=== PATIENT | female | born 1990 | race African-American/Black ===

== ENCOUNTER → 2022-10-13 15:38 | Outpatient (CLI) | payer BC, SELFPAY ==
--- NOTE | ~2022-10-13 | US_ITS ---
EXAMINATION: US OB transvaginal DATE: 10/13/2022 16:05 INDICATION: Sharp pelvic pain and spotting during first trimester . TECHNIQUE: Real-time pelvic ultrasound utilizing transvaginal probe was performed. The interpreting r adiologist was not present for the study. COMPARISON: None. FINDINGS: The uterus measures 10.4 x 6.7 x 8.8 cm. Intrauterine gestational sac with single chorion containing what appear to be 2 separate yolk sacs and 2 separate amniotic sacs, one in the and one containing a single pole. The crown rump length measures 1.6 cm, which correlates with an estimated gestati onal age of 8 weeks and 0 days. heart motion is identified measuring 160 beats per minute (bpm) by M-mode Doppler. There are couple small hypoechoic regions of the periphery of the gestational sac consistent with sub chorionic hematomas. The larger is located on the left superior margin measuring 2.1 x 1.2 x 1.0 cm a nd the smaller measuring 1.2 x 1.0 x 0.4 cm located posterior inferiorly. 3.2 x 1.6 x 2.5 cm hypoecho ic subserosal fibroid at the posterior uterine fundus. The right ovary measures 3.8 x 3.0 x 2.7 cm. The left ovary measures 2.5 x 1.0 x 2.5 cm. There is no free fluid in the pelvis. IMPRESSION: 1. Single living fetus with heart of 160 bpm within a likely dichorionic diamniotic . No evident fetus identified within a second likely amniotic sac. 2. Gestational age by ultrasound of 8 weeks 0 day(s) +/- 5 day(s) with ultrasound estimated date of delivery (GRICELDA) of 05/25/2023. 3. There are a couple small subchorionic hematomas. Reviewed, dictated and finalized at location A. E CASE REPAIRER IMPRESSION: 1. Single living fetus with heart of 160 bpm within a likely dichorionic diamniotic . No evident fetus identified within a second likely amniot ic sac. 2. Gestational age by ultrasound of 8 weeks 0 day(s) +/- 5 day(s) with ultraso und estimated date of delivery (GRICELDA) of 05/25/2023. 3. There are a couple small subchorionic hematomas.
== END ==
PROVIDERS: PCP Advanced Practice Midwife; Visit Provider Advanced Practice Midwife
DX: O26.851 Spotting complicating pregnancy, first trimester (principal); O36.80X0 Pregnancy with inconclusive fetal viability, not applicable or unspecified; Z3A.08 8 weeks gestation of pregnancy
CPT/HCPCS: 76817

== ENCOUNTER → 2022-10-29 14:24 | Outpatient (CLI) | payer BC, SELFPAY ==
--- NOTE | ~2022-10-29 | US_ITS ---
EXAMINATION: US OB transvaginal DATE: 10/29/2022 14:54 INDICATION: Follow-up subchorionic hematoma during first trimester TECHNIQUE: Real-time pelvic transabdominal and transvaginal ultrasound was performed. COMPARISON: 10/13/2022 FINDINGS: The uterus measures 10.7 x 6.6 x 9.8 cm. The previously described subchorionic hematomas ar e not visualized. In addition only a single amnion and yolk sac are visualized on the current examina tion. There is an intrauterine gestational sac. A yolk sac is identified. heart motion is iden tified measuring 157 beats per minute (bpm) by M-mode Doppler. A 1.9 x 1.8 x 1.7 cm hypoechoic mass o f the posterior uterine body has the appearance of an intramural fibroid. The crown rump length measures 3.5 cm, which correlates with an estimated gestational age of 10 weeks and 3 day(s) (+/-) 7 day(s). The ovaries are not visualized however no adnexal abnormality is seen. There is no free fluid in the pelvis. IMPRESSION: 1. Live intrauterine with an estimated gestational age of 10 weeks and 3 day(s) (+/-) 7 day (s) and an estimated delivery date of 05/24/2023. 2. No subchorionic hematoma visualized. 3. Uterine fibroid. 4. Previously described empty second amniotic sac and yolk sac are no longer identified. Reviewed, dictated and finalized at location F. ECTIONAL COOK IMPRESSION: 1. Live intrauterine with an estimated gestational age of 10 weeks an d 3 day(s) (+/-) 7 day(s) and an estimated delivery date of 05/24/2023. 2. No subchorionic hematoma visualized. 3. Uterine fibroid. 4. Previously described empty second amniotic sac and yolk sac are no longer id entified.
== END ==
PROVIDERS: PCP Obstetrics & Gynecology Gynecology; Visit Provider Obstetrics & Gynecology Gynecology
DX: O36.8910 Maternal care for other specified fetal problems, first trimester, not applicable or unspecified (principal); Z3A.00 Weeks of gestation of pregnancy not specified; D25.9 Leiomyoma of uterus, unspecified
CPT/HCPCS: 76817

== ENCOUNTER → 2022-12-21 15:51 | Outpatient (CLI) | payer BC, SELFPAY ==
--- NOTE | ~2022-12-21 | US_ITS ---
EXAMINATION: US OB /maternal detail DATE: 12/21/2022 16:39 INDICATION: Second trimester anatomic survey TECHNIQUE: Real-time ultrasound of the pelvis was performed. COMPARISON: None. FINDINGS: There is a single living fetus in vertex presentation. The placenta is posterior and 3.2 cm from the internal cervical os. The cervical length is 2.8 cm. heart rate is 142 beats per minute (bpm). cardiac activity and movement are noted. The amniotic fluid index is subjectively normal . The following anatomy was identified as normal: 4 chamber heart 3 vessel cord cord insertion kidneys urinary bladder stomach spine diaphragm ventricles cisterna magna cerebellum The following biometric data were obtained: Biparietal diameter (BPD): 4.3 cm; head circumference (HC): 15.6 cm; abdominal circumference (AC): 12 .9 cm; femur length (FL): 2.5 cm. These measurements are concordant. Estimated weight is 225 g +/- 33 g, which correlates with the 63rd percentile when 05/25/2023 is used as estimated date of delivery. As single measurements, these parameters are each equal to the following estimated gestational ages w ith ranges of +/- 2 standard deviations: BPD: 19 weeks 1 days ( 17 weeks 3 days - 20 weeks 6 days). HC: 18 weeks 4 days ( 17 weeks 0 days - 20 weeks 0 days). AC: 18 weeks 4 days ( 16 weeks 3 days - 20 weeks 4 days). FL: 17 weeks 4 days ( 16 weeks 1 days - 19 weeks 0 days). estimated gestational age based solely on measurements from this exam is 18 weeks 3 days +/- 1 weeks 2 days. IMPRESSION: 1. Single living fetus in vertex presentation. 2. Estimated weight is 225 g +/- 33 g, which correlates with the 63rd percentile when 05/25/2023 is used as estimated date of delivery. Reviewed, dictated and finalized at location L. IMPRESSION: 1. Single living fetus in vertex presentation. 2. Estimated weight is 225 g +/- 33 g, which correlates with the 63rd per centile when 05/25/2023 is used as estimated date of delivery.
== END ==
PROVIDERS: PCP Advanced Practice Midwife; Visit Provider Advanced Practice Midwife
DX: Z36.9 Encounter for antenatal screening, unspecified (principal)
CPT/HCPCS: 76805

== ENCOUNTER → 2023-02-08 11:06 | Outpatient (CLI) | payer BC, SELFPAY ==
--- NOTE | ~2023-02-08 | US_ITS ---
EXAMINATION: US OB follow up DATE: 02/08/2023 11:33 INDICATION: Size greater than dates TECHNIQUE: Real-time ultrasound of the pelvis was performed. COMPARISON: 12/21/2022. FINDINGS: Cervical length 3.6 cm, closed. There is a single living fetus in breech presentation, longitudinal l ie. The placenta is fundal. heart rate is 129 beats per minute (bpm). cardiac activity a nd movement are noted. The amniotic fluid index is 30.6 cm (5th to 95th percentile is 9.8-21.9 cm). The following biometric data were obtained: Biparietal diameter (BPD): 6.53 cm; head circumference (HC): 24.70 cm; abdominal circumference (AC): 21.15 cm; femur length (FL): 4.77 cm. These measurements are concordant. Estimated weight is 869.64 g +/- 130.45 g, which correlates with the 85.2 percentile when 2022 is used as estimated date of delivery. As single measurements, these parameters are each equal to the following estimated gestational ages w ith ranges of +/- 2 standard deviations: BPD: 26 weeks 3 days ( 24 weeks 1 days - 28 weeks 4 days). HC: 26 weeks 6 days ( 24 weeks 5 days - 28 weeks 6 days). AC: 25 weeks 5 days ( 23 weeks 3 days - 27 weeks 6 days). FL: 26 weeks 0 days ( 23 weeks 6 days - 28 weeks 0 days). estimated gestational age based solely on measurements from this exam is 26 weeks 2 days +/- 1 weeks 6 days. IMPRESSION: 1. Single living fetus in breech presentation. 2. Polyhydramnios. 3. Estimated weight: 869.64 g +/-130.45 g, corresponding to the 85.2 percentile. 4. GRICELDA by ultrasound 05/15/2023. Reviewed, dictated and finalized at location K. IMPRESSION: 1. Single living fetus in breech presentation. 2. Polyhydramnios. 3. Estimated weight: 869.64 g +/-130.45 g, corresponding to the 85.2 perc entile. 4. GRICELDA by ultrasound 05/15/2023.
== END ==
PROVIDERS: PCP Advanced Practice Midwife; Visit Provider Advanced Practice Midwife
DX: O36.63X0 Maternal care for excessive fetal growth, third trimester, not applicable or unspecified (principal); Z3A.26 26 weeks gestation of pregnancy
CPT/HCPCS: 76816

== ENCOUNTER 2023-03-04 12:57 | Outpatient (RCR) | payer BC, SELFPAY ==
[2023-03-04] MEDS: RHO(D) IMMUNE GLOBULIN 300 MCG/2 ML SYRINGE IM (17:30)
== END 2023-06-02 23:59 | disposition home or self-care (01) ==
LOC: ANHLAB 12:57
PROVIDERS: Visit Provider Advanced Practice Midwife
DX: Z29.13 Encounter for prophylactic Rho(D) immune globulin (principal); O36.0190 Maternal care for anti-D [Rh] antibodies, unspecified trimester, not applicable or unspecified; Z3A.00 Weeks of gestation of pregnancy not specified
CPT/HCPCS: 36415; 85461; 86850; 86900; 86901; 90384; 96372; J2790

== ENCOUNTER → 2023-04-06 15:34 | Outpatient (CLI) | payer BC, SELFPAY ==
--- NOTE | ~2023-04-06 | US_ITS ---
EXAMINATION: US OB limited DATE: 04/06/2023 16:00 INDICATION: Estimated size greater than expected for estimated gestational age during third tri mester . Assess amniotic fluid index. TECHNIQUE: Real-time ultrasound of the pelvis was performed. The interpreting radiologist was not pre sent for the study. COMPARISON: None. FINDINGS: There is a single living fetus in vertex presentation. The placenta is anterior fundal and not low-l evon. Normal cervical length of 4.8 cm. heart rate is 146 beats per minute (bpm). The amniotic fluid index is 20.7 cm, which is normal. (5th%-95%: 8.3-24.5 cm at 33 weeks estimated gestational age ). IMPRESSION: 1. Single living fetus in vertex presentation with heart rate of 146 bpm. 2. Normal amniotic fluid index of 20.7 cm. Reviewed, dictated and finalized at location B. IMPRESSION: 1. Single living fetus in vertex presentation with heart rate of 146 bpm . 2. Normal amniotic fluid index of 20.7 cm.
== END ==
PROVIDERS: PCP Obstetrics & Gynecology Gynecology; Visit Provider Obstetrics & Gynecology Gynecology
DX: O36.63X0 Maternal care for excessive fetal growth, third trimester, not applicable or unspecified (principal); Z3A.00 Weeks of gestation of pregnancy not specified
CPT/HCPCS: 76815

== ENCOUNTER 2023-05-24 16:35 | Outpatient (CLI) | payer BC, SELFPAY ==
[2023-05-24] VITALS (11 sets, daily range): BP systolic 85–126; BP diastolic 65–86; PULSE 78–101
[2023-05-24 17:57] LABS: Basophils Percent Auto 0.2 % (0.2-1.2); Eosinophils Absolute Auto 0.1 K/mm3 (0-0.3); Eosinophils Percent Auto 0.8 % (0-4.4); Hematocrit 37.9 % (37.0-47.0); Immature Granulocyte Absolute 0.08 K/mm3 (0.00-0.031); Immature Granulocyte Percent A 0.8 % (0-0.5); Lymphocytes Absolute Auto 1.95 K/mm3 (0.9-3.2); Lymphocytes Percent Auto 19.7 % (18.3-44.2); Mean Corpuscular HGB Conc 31.7 g/dl (32-36); Mean Corpuscular Hemoglobin 28.7 pg (26-34); Mean Corpuscular Volume 90.7 fl (80-100); Mean Platelet Volume 10.8 fl (7.4-10.4); Monocytes Absolute Auto 0.5 K/mm3 (0.1-0.6); Monocytes Percent Auto 5.1 % (2.6-8.5); Neutrophils Absolute Auto 7.3 K/mm3 (1.3-6.7); Neutrophils Percent Auto 73.4 % (45.5-73.1); Platelet Count Result 210 k/mm3 (150-375); Red Blood Count 4.18 M/mm3 (4.2-5.4); Red Cell Distribution Width 15.5 % (11.5-14.5); White Blood Count 9.9 K/mm3 (4.5-10.0)
[2023-05-24 18:09] LABS: Alanine Aminotransferase 26 U/L (6-35); Albumin Level 3.5 g/dL (3.5-5.1); Alkaline Phosphatase 204 U/L (38-126); Anion Gap 4 mmol/L (8-16); Aspartate Amino Transferase 34 U/L (14-36); Bilirubin,Total 0.4 mg/dL (0.2-1.3); Blood Urea Nitrogen 7 mg/dL (7-17); Carbon Dioxide 22 mmol/L (22-30); Chloride 104 mmol/L (98-107); Estimated Glomerular Filt Rate > 60; Glucose 136 mg/dL (65-110); Potassium 3.8 mmol/L (3.4-5.0); Sodium 130 mmol/L (137-145); Uric Acid 5.6 mg/dL (2.5-7.5)
[2023-05-24 18:47] LABS: Appearance Urine Clear (Clear); Bacteria Urine None Seen /hpf; Bilirubin Urine Negative (Negative); Blood Urine Negative (Negative); Color Urine Yellow (Yellow); Creatinine Urine 160.9 mg/dL; Glucose Urine UA Negative (Negative); Ketones Urine 1+ mg/dL (Negative); Leukocyte Esterase Ur 2+ LEU/UL (NEGATIVE); Nitrate Urine Negative (Negative); Non Pathogenic Casts 0-2; Protein Urine Trace mg/dL (Negative); RBC Urine 0-2 /hpf (0-2); Specific Grav Ur 1.015 (1.001-1.035); Squamous Epithelial Cell Urine Occasional /hpf (Few); Total Protein Urine Random 12 mg/dL; Ur Ttl Prot Creatinine Ratio 0.07 mg/mg (0-0.20)
[2023-05-24 18:50] LABS: Add Urine Microscopic? YES
== END 2023-05-24 19:57 | disposition home or self-care (01) ==
LOC: ANHOBOP 17:27 → ANHLDR 17:28
PROVIDERS: Visit Provider Advanced Practice Midwife
DX: O13.9 Gestational [pregnancy-induced] hypertension without significant proteinuria, unspecified trimester (principal); Z3A.00 Weeks of gestation of pregnancy not specified
CPT/HCPCS: 36415; 59025; 80053; 81001; 82570; 84156; 84550; 85025; 87086; 99199

== ENCOUNTER 2023-05-29 17:26 | Inpatient (IN) | payer BC, SELFPAY ==
[2023-05-29] VITALS (14 sets, daily range): BP systolic 99–119; BP diastolic 65–79; PULSE 87–108; RESP 16–18; TEMP 36.3; O2SAT 99–100; BMI 38.8
--- NOTE | 2023-05-29 18:39 | LDADM ---
This patient, Bessie Guajardo, was admitted to Labor/Delivery/Recovery 105 on 05/29/23 at 17:26. Plans for labor, pain management and were discussed with patient. Patient/family oriented to hospital policies and general routines including ID bracelet, bed and alarms, visiting hours, pain management, procedures, bathroom and other care routines, personal items, smoking policy, room service/diet and guest tray routines, security routines, and visiting hours. Patient/Family are encouraged to report perceived risks to care and to ask questions if they do not understand what they are told or what they should do. See OBIX for further documentation.
[2023-05-29 18:56] LABS: Basophils Percent Auto 0.2 % (0.2-1.2); Eosinophils Absolute Auto 0.1 K/mm3 (0-0.3); Eosinophils Percent Auto 1.1 % (0-4.4); Hematocrit 36.7 % (37.0-47.0); Hemoglobin 11.9 g/dL (12.0-15.0); Immature Granulocyte Absolute 0.07 K/mm3 (0.00-0.031); Immature Granulocyte Percent A 0.7 % (0-0.5); Lymphocytes Absolute Auto 2.06 K/mm3 (0.9-3.2); Lymphocytes Percent Auto 21.5 % (18.3-44.2); Mean Corpuscular HGB Conc 32.4 g/dl (32-36); Mean Corpuscular Hemoglobin 29.2 pg (26-34); Mean Platelet Volume 10.7 fl (7.4-10.4); Monocytes Absolute Auto 0.9 K/mm3 (0.1-0.6); Monocytes Percent Auto 9.3 % (2.6-8.5); Neutrophils Absolute Auto 6.4 K/mm3 (1.3-6.7); Neutrophils Percent Auto 67.2 % (45.5-73.1); Platelet Count Result 187 k/mm3 (150-375); Red Blood Count 4.08 M/mm3 (4.2-5.4); Red Cell Distribution Width 15.3 % (11.5-14.5); White Blood Count 9.6 K/mm3 (4.5-10.0)
[2023-05-29] MEDS: LACTATED RINGERS 1,000 ML 125 ML IV CONT (20:12)
[2023-05-29] MEDS: AMPICILLIN 2 GM/NS 100 ML 2 GM/100 ML BAG IVPB (20:14)
[2023-05-29] MEDS: OXYTOCIN 30 UNITS/NS 500 ML 30 UNITS/500 ML BAG IV CONT (20:46)
[2023-05-30] VITALS (200 sets, daily range): BP systolic 60–131; BP diastolic 31–96; PULSE 30–238; RESP 16–20; TEMP 36.3–37.9; O2SAT 79–100
[2023-05-30] MEDS: AMPICILLIN 1 GM/NS 50 ML 1 GM/50 ML BAG IVPB ×2 (00:59→05:06)
[2023-05-30] MEDS: LACTATED RINGERS 1,000 ML 125 ML IV CONT ×2 (00:59→08:13)
--- NOTE | 2023-05-30 01:19 | WPDANESEPP ---
Anes - Eval Pre Procedure Procedure: Labor epidural Date/Time: 05/30/23 01:19 Surgeon: Herbert Preop Diagnosis: Abdominal pain with contractions Pre Op Diagnosis: spontaneous ROM Patient Data Age: 32 Gender: F Height: 1.6 m Weight: 99.5 kg Last Vital Signs Temp 97.4 F L 05/29/23 20:16 Pulse 108 H 05/29/23 22:48 Resp 16 05/29/23 20:16 BP 99/68 L 05/29/23 22:48 Pulse Ox 98 05/30/23 01:16 O2 Del Method Room Air 05/29/23 18:37 Allergies Allergy/AdvReac Type Severity Reaction Status Date / Time No Known Allergies Allergy Verified 04/25/23 13:43 Home Medications Medication Instructions Recorded Confirmed Type docusate sodium 100 mg capsule 100 mg PO DAILY 04/25/23 05/29/23 History (Colace) vits no.126-ferrous fum 1 tablet PO DAILY 04/25/23 05/29/23 History 28 mg iron-folic acid 800 mcg tablet (Classic ) Laboratory Tests 05/29/23 05/29/23 18:51 18:52 WBC 9.6 K/mm3 (4.5-10.0) RBC 4.08 L M/mm3 (4.2-5.4) Hgb 11.9 L g/dL (12.0-15.0) Hct 36.7 L % (37.0-47.0) MCV 90.0 fl (80-100) MCH 29.2 pg (26-34) MCHC 32.4 g/dl (32-36) RDW 15.3 H % (11.5-14.5) Plt Count 187 k/mm3 (150-375) MPV 10.7 H fl (7.4-10.4) Immature Gran % (Auto) 0.7 H % (0-0.5) Neut % (Auto) 67.2 % (45.5-73.1) Lymph % (Auto) 21.5 % (18.3-44.2) [place] % (Auto) 9.3 H % (2.6-8.5) Eos % (Auto) 1.1 % (0-4.4) Baso % (Auto) 0.2 % (0.2-1.2) Lymph # (Auto) 2.06 K/mm3 (0.9-3.2) [place] # (Auto) 0.9 H K/mm3 (0.1-0.6) Eos # (Auto) 0.1 K/mm3 (0-0.3) Baso # (Auto) 0.0 K/mm3 (0.0-0.1) Abs Immat Gran (auto) 0.07 H K/mm3 (0.00-0.031) Absolute Neuts (auto) 6.4 K/mm3 (1.3-6.7) Absolute Nucleated RBC 0.0 K/mm3 (0.0-0.012) Nucleated RBC % 0.0 % (0.0-0.2) RPR Pending Blood Type A Negative Antibody Screen Negative : gestational age HCG: positive Patient hx anesthesia problems: none Family hx anesthesia problems: none Results Review: All pre-operative results and documents have been reviewed as part of the pre-operative evaluation. [facility]LY [facility] Past Medical History Medical History Anemia affecting Asthma Morbid obesity and not yet delivered Family History Family History Grandparent Thyroid disorder Hypertension Father Thyroid disorder Mother Anemia Social History Social History Smoking status: Never smoker Substance use: never Lack of Transportation: No Lack of Food: Never True Current Housing: I Have Housing Concerned About Future Housing: No Difficulty Paying Gas/Electric Bills: No Difficulty Paying for Meds: No Currently Unemployed: No Education: Bachelor's Degree Difficulty w/ Childcare or Family Care: No Spiritual care concerns: No Exam Day of Procedure 05/30/23 01:19 Patient weight: morbidly obese Airway: Mallampati scale class II
[2023-05-30] MEDS: PHENYLEPHRINE 1,000 MCG/10 ML SYRINGE 100 MCG IV PUSH ×2 (02:20→05:50)
[2023-05-30] MEDS: TERBUTALINE SULFATE 1 MG/ML VIAL 0.25 MG SUB-Q (02:46)
[2023-05-30] MEDS: SODIUM CHLORIDE 0.9% IV 600 ML 999 ML I-UTERINE (03:52)
[2023-05-30] MEDS: SODIUM CHLORIDE 0.9% IV 1,000 ML 180 ML I-UTERINE ×2 (04:29→06:48)
--- NOTE | 2023-05-30 08:04 | PM.OBPNLAB ---
Pain Control Date/time seen: 05/30/23 0771 Pain control: tolerating well and epidural Comments: Pt with intermittent hypotension since epidural placement and periods of recurrent variable decelerations. Overall reassuring tracing. Amnioinfusion started overnight and variables have improved. Pelvic Exam Comments: No sve at this time Contractions Monitor mode: Internal Contraction pattern: Regular Status status: Category ll Assessment and Plan Comments: Pitocin off at this time. Discussed plan of care. Plan to restart pitocin if at least 30 minutes of cat 1 tracing is present. Pt repositioned with CNM and RN. Family present and supportive. Dr. Godinez updated.
--- NOTE | 2023-05-30 09:19 | PM.IMHP ---
H&P: HPI History of Present Illness Date/Time: 05/30/23 09:19 Chief Complaint: intolerance of labor Narrative: Patient is a 32-year-old 1 at 39 and 2 7th weeks admitted with labor and spontaneous rupture of membranes. Patient has progressed slowly to 5cm. heart tones have been on and off category 2. Patient had a prolonged bradycardic episode when Pitocin was restarted. It resolved with position change and stopping the Pitocin. Patient remains 5cm. It was recommended to the patient to proceed with primary . Patient voiced understanding and agreed to proceed. Review of Systems Review of Systems: All systems reviewed & are unremarkable except as noted in HPI and below ( Present illness) [facility] Past Medical History Medical History (Updated 05/30/23 @ 09:23 by Tamiko Godinez MD) Anemia affecting Asthma Morbid obesity Family History Family History Grandparent Thyroid disorder Hypertension Father Thyroid disorder Mother Anemia Social History Social History Smoking status: Never smoker Substance use: never Lack of Transportation: No Lack of Food: Never True Current Housing: I Have Housing Concerned About Future Housing: No Difficulty Paying Gas/Electric Bills: No Difficulty Paying for Meds: No Currently Unemployed: No Education: Bachelor's Degree Difficulty w/ Childcare or Family Care: No Spiritual care concerns: No Meds Home Medications and Allergies Home Medications Medication Instructions Recorded Confirmed Type docusate sodium 100 mg capsule 100 mg PO DAILY 04/25/23 05/29/23 History (Colace) vits no.126-ferrous fum 1 tablet PO DAILY 04/25/23 05/29/23 History 28 mg iron-folic acid 800 mcg tablet (Classic ) Allergies Allergy/AdvReac Type Severity Reaction Status Date / Time No Known Allergies Allergy Verified 04/25/23 13:43 Vital Signs Vital Signs - 24 hr 05/29/23 17:46 05/29/23 18:01 05/29/23 18:17 Temperature Pulse Rate 94 93 90 Respiratory Rate Blood Pressure 119/76 114/69 105/65 Pulse Oximetry Oxygen Delivery 05/29/23 18:30 05/29/23 20:16 05/29/23 20:52 Temperature 97.4 F L Pulse Rate 89 90 87 Respiratory Rate 16 Blood Pressure 108/79 112/79 113/71 Pulse Oximetry Oxygen Delivery 05/29/23 22:48 05/29/23 23:35 05/29/23 23:40 Temperature Pulse Rate 108 H Respiratory Rate Blood Pressure 99/68 L Pulse Oximetry 99 100 Oxygen Delivery 05/29/23 23:45 05/29/23 23:50 05/29/23 23:55 Temperature Pulse Rate Respiratory Rate Blood Pressure Pulse Oximetry 100 99 100 Oxygen Delivery 05/29/23 23:59 05/30/23 00:04 05/30/23 00:07 Temperature Pulse Rate Respiratory Rate Blood Pressure Pulse Oximetry 100 99 98 Oxygen Delivery 05/30/23 00:07 05/30/23 00:07 05/30/23 00:09 Temperature Pulse Rate Respiratory Rate Blood Pressure Pulse Oximetry 99 99 95 Oxygen Delivery 05/30/23 00:14 05/30/23 00:19 05/30/23 00:24 Temperature Pulse Rate Respiratory Rate Blood Pressure Pulse Oximetry 100 98 100 Oxygen Delivery 05/30/23 00:29 05/30/23 00:34 05/30/23 00:39 Temperature Pulse Rate Respiratory Rate Blood Pressure Pulse Oximetry 100 100 100 Oxygen Delivery 05/30/23 00:44 05/30/23 00:49 05/30/23 00:54 Temperature Pulse Rate Respiratory Rate Blood Pressure Pulse Oximetry 99 99 100 Oxygen Delivery 05/30/23 00:59 05/30/23 01:16 05/30/23 01:21 Temperature Pulse Rate Respiratory Rate Blood Pressure Pulse Oximetry 100 98 100 Oxygen Delivery 05/30/23 01:23 05/30/23 01:26 05/30/23 01:30 Temperature Pulse Rate 125 H 105 H Respiratory Rate Blood Pressure 119/93 H 121/82 Pulse O
--- NOTE | 2023-05-30 09:24 | WPDHPUPDATE1 ---
History and Physical Update Update Date/Time: 05/30/23 09:24 History and Physical has been reviewed, including an updated exam of the patient. There are NO changes in the patient's condition. Risks, benefits, and alternatives have been discussed and questions answered. Patient agrees to proceed with procedure.
--- NOTE | 2023-05-30 10:22 | P.OP_ITS ---
Procedure Note - Detailed Date of Procedure 05/30/23 Pre-op Diagnosis Intrauterine at 39 weeks intolerance of labor Post-op Diagnosis Same Procedure Performed Primary low-transverse section Surgeon Tamiko Godinez MD Anesthesia Epidural Findings Male 9lb 4oz with Apgars of 8 [id number] 9 [id number] in the occiput posterior position; normal-appearing tubes, ovaries; uterus with multiple small fibroids under 2cm Description of Procedure The patient is taken to the operating room and placed under anesthesia in the dorsal supine position with a leftward tilt. She was prepped and draped in the usual sterile fashion. Pfannenstiel skin incision was made with a scalpel and carried down to the underlying layer fascial once anesthesia was deemed adequate. The fascial incision was extended laterally using Paiz scissors. Ochsner was used to tent the fascia which was then dissected off using sharp and blunt dissection. Rectus muscles are in the midline. The peritoneum is tented and entered with Metzenbaum scissors. The incision was extended with blunt traction. The bladder blade is placed and the vesicouterine peritoneum grasped with a Peon. The bladder flap was created using Metzenbaum sound blunt dissection. The bladder blade is replaced. The lower uterine segment was incised in a transverse fashion with the scalpel and extended laterally using blunt traction. The 's head was noted to be in occiput posterior position. The infant's head was brought up into the incision and delivered while the speech pathologist assistant was applying fundal pressure. The remainder of the was delivered and the cord clamped and cut and the infant handed to the waiting nursery nurse. The placenta was removed using manual traction after cord gases and cord blood are drawn. The uterus is exteriorized and cleared of all clots and debris. The uterine incision was closed using 0 Monocryl in a running locked fashion. Same suture was used to imbricate. Good hemostasis is noted. The cul-de-sac is irrigated and the uterus returned to the abdomen the gutters are irrigated. The fascia was closed in a running fashion with 0 Vicryl. Subcutaneous tissues were irrigated made hemostatic using Bovie cautery. Skin incision was closed using 4-0 Vicryl in a subcuticular fashion. Dermaflex was placed over the incision. Sponge, needle, and instrument counts are correct per the OR staff. Patient received Ancef and Zithromax. Estimated Blood Loss 300 Drains Yes (Parkinson catheter) Packing No Pathology Yes (Placenta) Complications No immediate complications Condition Stable Disposition Floor
--- NOTE | 2023-05-30 10:43 | P.DS_ITS ---
DS: Admitting Diagnosis Discharge Date 06/02/23 Admitting Diagnosis intrauterine at 39 weeks with spontaneous rupture membranes in labor DS: Discharge Diagnosis Discharge Diagnosis (1) bradycardia affecting management of mother, delivered: Code(s): O76 - Abnormality in heart rate and rhythm complicating labor and delivery Status: Acute (2) 39 weeks gestation of : Code(s): Z3A.39 - 39 weeks gestation of Status: Acute (3) Delivery by section using transverse incision of lower segment of uterus: Code(s): O82 - Encounter for delivery without indication Status: Acute OB - DS: Summary OB Procedures : Ultrasound OB Procedures Intrapartum: low cervical, transverse OB Procedures: : None Peripartum Data Infant Delivery Method: Section complications: none Status at Discharge Functional status at discharge: independent ambulation Overall status at discharge: patient is progressing back to baseline Time Spent with Patient Time attestation: Total time spent providing and/or coordinating discharge services: DS: Data Data Completed and Pending Labs on day of discharge: Labs from last 24 hours 05/29/23 05/29/23 18:52 18:51 WBC 9.6 RBC 4.08 L Hgb 11.9 L Hct 36.7 L MCV 90.0 MCH 29.2 MCHC 32.4 RDW 15.3 H Plt Count 187 MPV 10.7 H Immature Gran % (Auto) 0.7 H Neut % (Auto) 67.2 Lymph % (Auto) 21.5 [place] % (Auto) 9.3 H Eos % (Auto) 1.1 Baso % (Auto) 0.2 Lymph # (Auto) 2.06 [place] # (Auto) 0.9 H Eos # (Auto) 0.1 Baso # (Auto) 0.0 Abs Immat Gran (auto) 0.07 H Absolute Neuts (auto) 6.4 Absolute Nucleated RBC 0.0 Nucleated RBC % 0.0 RPR Pending Blood Type A Negative Antibody Screen Negative Discharge Plan Discharge Attending physician on discharge: Tamiko Godinez Discharging Clinician: Tamiko Godinez Anticipated Discharge Date/Time: 06/02/23 10:45 Patient Disposition: Home, Self-Care Activity: may shower, may drive after 2 weeks and pelvic rest Diet: regular Wound Care Instructions: incision open to air Patient Instructions: Antibiotic Form Stand Alone Forms: General Discharge Information Follow-up/Referrals: Tamiko Godinez MD [Physician] - 6 Weeks ( 1 week incision check) Discharge Medications: New hydrocodone-acetaminophen 5-325 mg tablet 1 tablet PO Q4H PRN (Reason: pain) Qty: 10 0RF Continued docusate sodium [Colace] 100 mg Capsule 100 mg PO DAILY Classic 28 mg iron- 800 mcg Tablet 1 tablet PO DAILY Date of admission: 05/29/23 17:26 Primary Care Provider: PHYSICIAN,INVESTIGATOR Admitting Provider: Tamiko Godinez Attending physician on admission: Tamiko Godinez Condition: Stable
[2023-05-30 10:57] LABS: Rapid Plasma Reagin Non-Reactive (NonReactive)
[2023-05-30] MEDS: fentaNYL CITRATE INJ (*CRX) 100 MCG/2 ML VIAL 25 MCG IV PUSH (13:15)
[2023-05-30] MEDS: ONDANSETRON INJ 4 MG/2 ML VIAL IV PUSH (13:15)
--- NOTE | 2023-05-30 13:17 | PC.NURSE ---
Patient transferred to post room #288 via stretcher. Support person present. Oriented to unit, room, information board, rooming in, admission packet and security measures. Patient verbalizes understanding.
[2023-05-30] MEDS: OXYTOCIN 30 UNITS/NS 500 ML 30 UNITS/500 ML BAG 125 UNITS IV CONT (14:19)
--- NOTE | 2023-05-30 16:06 | PC.NURSE ---
[id number] Introductions were made, then consulted with patient to assess needs related to . Mother led the conversation with her?plans to feed?her infant and the?experience so far. Mother works well with her and just completed a breastfeed on her left breast with the assistance of her supportive friend. Reviewed positioning and ear, shoulder, hip alignment, supporting the breast to facilitate a deep latch, asymmetrical latch (off-center), leading with the chin with a big, open, wide gape and body close to mother. latched optimally to the right breast in football position. Education given to mother of how to visualize suck/swallow ratios, listening for drinking at the breast and infant is demonstrating well. Infant was able to maintain latch without discomfort to mother. Nipple care reviewed with optimal latch and good positioning. Mother voiced understanding of skin to skin, stimulating with massage touch, responsive feedings, talking to infant to encourage on demand or if it has been 2 -2.5 hours since the start of the last , to call if does not latch, or if there is discomfort with . Mother voiced understanding of information, demonstrated learning and will call if there is a request for assistance. Reported to the Primary RN.
[2023-05-31 04:10] VITALS: BP 110/61; PULSE 86; RESP 16; TEMP 36.9
[2023-05-31] MEDS: HYDROcodone/acetaminophen (*CRX) 5-325 MG TABLET 1 TAB PO ×2 (04:22→14:20)
[2023-05-31] MEDS: IBUPROFEN 600 MG TABLET PO ×2 (04:22→14:20)
[2023-05-31 05:28] LABS: Basophils Percent Auto 0.1 % (0.2-1.2); Eosinophils Percent Auto 0.1 % (0-4.4); Hematocrit 35.9 % (37.0-47.0); Hemoglobin 11.6 g/dL (12.0-15.0); Immature Granulocyte Absolute 0.08 K/mm3 (0.00-0.031); Immature Granulocyte Percent A 0.5 % (0-0.5); Lymphocytes Absolute Auto 1.62 K/mm3 (0.9-3.2); Lymphocytes Percent Auto 10.4 % (18.3-44.2); Mean Corpuscular HGB Conc 32.3 g/dl (32-36); Mean Corpuscular Hemoglobin 29.7 pg (26-34); Mean Corpuscular Volume 91.8 fl (80-100); Mean Platelet Volume 11.5 fl (7.4-10.4); Monocytes Absolute Auto 1.2 K/mm3 (0.1-0.6); Monocytes Percent Auto 7.5 % (2.6-8.5); Neutrophils Absolute Auto 12.7 K/mm3 (1.3-6.7); Neutrophils Percent Auto 81.4 % (45.5-73.1); Platelet Count Result 198 k/mm3 (150-375); Red Blood Count 3.91 M/mm3 (4.2-5.4); Red Cell Distribution Width 15.5 % (11.5-14.5); White Blood Count 15.6 K/mm3 (4.5-10.0)
--- NOTE | 2023-05-31 07:43 | P.PNOB_ITS ---
OB - PN: Subj Subjective Date/time seen: 05/31/23 07:43 Patient comments: no complaints and pain well controlled baby status: doing well OB - PN: Obj Data Labs 05/31/23 04:16 Labs: Laboratory Results - last 24 hr 05/29/23 05/31/23 18:51 04:16 WBC 15.6 H RBC 3.91 L Hgb 11.6 L Hct 35.9 L MCV 91.8 MCH 29.7 MCHC 32.3 RDW 15.5 H Plt Count 198 MPV 11.5 H Immature Gran % (Auto) 0.5 Neut % (Auto) 81.4 H Lymph % (Auto) 10.4 L [place] % (Auto) 7.5 Eos % (Auto) 0.1 Baso % (Auto) 0.1 L Lymph # (Auto) 1.62 [place] # (Auto) 1.2 H Eos # (Auto) 0.0 Baso # (Auto) 0.0 Abs Immat Gran (auto) 0.08 H Absolute Neuts (auto) 12.7 H Absolute Nucleated RBC 0.0 Nucleated RBC % 0.0 RPR Non-reactive Blood Type A Negative Antibody Screen TNP Baby's Blood Type O pos Baby's WHITNEY Positive OB - PN A/P Plan day: 1 Plan: routine care Time Spent With Patient Time: Total time spent is greater than 50% in coordination of care (as documented) at patient's floor/unit and/or counseling patient: Exam Narrative: inc c/d/i : Bimanual exam- vagina & uterus: other (Uterus firm, nt @U)
[2023-05-31 08:36] VITALS: BP 102/60; PULSE 81; RESP 20; TEMP 36.2; O2SAT 98
[2023-05-31] MEDS: MULTIVIT/MIN/PREN/FOL AC/IRON TABLET 1 TAB PO (09:00)
[2023-05-31] MEDS: DOCUSATE SODIUM 100 MG CAPSULE PO (09:00)
--- NOTE | 2023-05-31 09:14 | PC.NURSE ---
0840 - Mother is walking the mascorro looking for her . Infant is in the nursery and Screener Perfumer states he is good and done . RN takes infant to mother, confirms band numbers, instructed mother to call out for circumcision care, if unable to latch or there's pain with latching as it has been 4 hours since the start of the last .
--- NOTE | 2023-05-31 10:03 | WPDANLDPN2 ---
Anes-Prog Note L&D Date/Time: 05/31/23 10:03 Comfortable throughout: section Neuraxial method: spinal Epidural/Spinal procedure site: clean & non-tender Neuro status: Neuro function grossly intact. Cardiovascular status: normal Respiratory status: normal Airway patency: baseline Mental status: baseline Post-Op hydration status: normal Vital Signs: Last Vital Signs Temp 36.2 C L 05/31/23 08:36 Pulse 81 05/31/23 08:36 Resp 20 05/31/23 08:36 BP 102/60 05/31/23 08:36 Pulse Ox 98 05/31/23 08:36 O2 Del Method Room Air 05/29/23 18:37 Pain score (VAS): 0 I/O: Intake & Output 05/30/23 05/31/23 05/31/23 23:59 07:59 15:59 Intake Total 240 500 Output Total 550 1550 Balance -310 -1050 Post-procedural complaints: none Patient feedback: Patient satisfied with anesthetic care.
--- NOTE | 2023-05-31 10:03 | WPDANLDNPN2 ---
Anes-Prog Note L&D-Neuraxial Date/Time: 05/31/23 10:03 Neuraxial medications: intrathecal PF morphine Opiod-related complaints: none Patient feedback: Patient satisfied with post-operative pain management.
--- NOTE | 2023-05-31 10:06 | WPDANLDPN2 ---
Anes-Prog Note L&D Date/Time: 05/31/23 10:06 Comfortable throughout: section Neuraxial method: spinal Epidural/Spinal procedure site: clean & non-tender Neuro status: Neuro function grossly intact. Cardiovascular status: normal Respiratory status: normal Airway patency: baseline Mental status: baseline Post-Op hydration status: normal Vital Signs: Last Vital Signs Temp 36.2 C L 05/31/23 08:36 Pulse 81 05/31/23 08:36 Resp 20 05/31/23 08:36 BP 102/60 05/31/23 08:36 Pulse Ox 98 05/31/23 08:36 O2 Del Method Room Air 05/29/23 18:37 Pain score (VAS): 0 I/O: Intake & Output 05/30/23 05/31/23 05/31/23 23:59 07:59 15:59 Intake Total 240 500 Output Total 550 1550 Balance -310 -1050 Post-procedural complaints: none Patient feedback: Patient satisfied with anesthetic care.
--- NOTE | 2023-05-31 13:59 | PC.NURSE ---
1155 - Primary RN reported that latch assessment was good. Mother is responsibly.
[2023-05-31] MEDS: SIMETHICONE 80 MG TAB.CHEW PO (14:20)
[2023-05-31] MEDS: RHO(D) IMMUNE GLOBULIN 300 MCG/2 ML SYRINGE IM (17:30)
[2023-05-31 19:45] VITALS: BP 103/59; PULSE 93; RESP 16; TEMP 36.3
[2023-06-01] MEDS: IBUPROFEN 600 MG TABLET PO (02:33)
[2023-06-01] MEDS: HYDROcodone/acetaminophen (*CRX) 5-325 MG TABLET 1 TAB PO (02:33)
[2023-06-01 08:00] VITALS: BP 98/58; PULSE 81; RESP 16; TEMP 36.8; O2SAT 99
--- NOTE | 2023-06-01 08:05 | P.PNOB_ITS ---
OB - PN: Subj Subjective Date/time seen: 06/01/23 0730 Patient comments: no complaints and pain well controlled baby status: doing well and nursing well [place] feeding status: exclusively breast feeding Narrative: POD 2 from primary LTCS. Ambulating without dizziness. Urinating without issue. Pain well controlled with PO medication. Passing flatus. very well. OB - PN: Obj Data Labs 05/31/23 04:16 Labs: Laboratory Results - last 24 hr 05/31/23 04:16 Blood Type A Negative Antibody Screen TNP Screen Negative Baby's Blood Type O pos Baby's WHITNEY Positive Doses of RhIg Required 1 OB - PN A/P Plan day: 2 Plan: routine care Time Spent With Patient Time: Total time spent is greater than 50% in coordination of care (as documented) at patient's floor/unit and/or counseling patient: Review of Systems Review of Systems: All systems reviewed & are unremarkable except as noted in HPI and below Exam Const: General: cooperative, no acute distress and awake Orientation/consciousness: patient oriented x3 Limitations: no limitations Chest: Other: Excellent latch observed with infant at right breast Resp: Effort & Inspection: normal respiratory effort and able to speak in complete sentences Auscultation: clear to auscultation bilaterally Cardio: Rate: regular rate Peripheral pulses: Peripheral pulses 2+ throughout GI: Inspection: normal to inspection Auscultation: normal bowel sounds : General: Yes bladder normal to palpation Bimanual exam- vagina & uterus: bladder normal to palpation Other: Fundus firm, below U Skin: General skin exam: normal color Other: Incision clean, dry, intact. Open to air Neuro: General: patient oriented x3 Cognition (Neuro): normal cognition Speech: normal speech Extrem: General: normal to inspection Psych: Appearance: grossly normal Mental Status: mental status grossly normal Speech and movement: Normal speech and movement present Affect: normal affect Attitude: cooperative Thought process: Normal thought process present
[2023-06-01] MEDS: MULTIVIT/MIN/PREN/FOL AC/IRON TABLET 1 TAB PO (08:20)
[2023-06-01] MEDS: SIMETHICONE 80 MG TAB.CHEW PO (08:20)
[2023-06-01] MEDS: DOCUSATE SODIUM 100 MG CAPSULE PO ×2 (08:20→21:40)
[2023-06-01 17:30] VITALS: BP 107/68; PULSE 95; RESP 16; TEMP 36.9; O2SAT 99
[2023-06-01 20:16] VITALS: BP 110/84; PULSE 92; RESP 16; TEMP 36.7; O2SAT 100
[2023-06-02] MEDS: IBUPROFEN 600 MG TABLET PO (02:58)
[2023-06-02] MEDS: HYDROcodone/acetaminophen (*CRX) 5-325 MG TABLET 1 TAB PO (02:59)
--- NOTE | 2023-06-02 07:38 | PM.OBPNVD ---
OB - PN: Subj Subjective Date/time seen: 06/02/23 07:38 Patient comments: no complaints and pain well controlled baby status: doing well OB - PN: Obj Data Labs 05/31/23 04:16 Labs: Laboratory Results - last 24 hr 05/31/23 04:16 Blood Type A Negative Antibody Screen TNP Screen Negative Baby's Blood Type O pos Baby's WHITNEY Positive Doses of RhIg Required 1 OB - PN A/P Plan day: 3 Plan: routine care, discharge home, follow up 6 weeks (and 1 week) and other (unsure control) Time Spent With Patient Time: Total time spent is greater than 50% in coordination of care (as documented) at patient's floor/unit and/or counseling patient: Exam Narrative: inc c/d/i : Bimanual exam- vagina & uterus: other (Uterus firm, nt @U)
[2023-06-02 08:00] VITALS: PULSE 80; RESP 16; O2SAT 100
[2023-06-02 09:05] VITALS: BP 124/90; PULSE 80; RESP 16; TEMP 36.6; O2SAT 100
[2023-06-02] MEDS: DOCUSATE SODIUM 100 MG CAPSULE PO (09:08)
[2023-06-02] MEDS: MULTIVIT/MIN/PREN/FOL AC/IRON TABLET 1 TAB PO (09:08)
[2023-06-02 12:39] VITALS: BP 130/67; PULSE 78; RESP 18; TEMP 36.5; O2SAT 98
--- NOTE | 2023-06-02 14:22 | PC.NURSE ---
[id number] Mother led the conversation with her experience and plan to feed her so far and her ability to independently latch optimally without discomfort. Reminded parents to use good handwashing technique to prevent infection. Mother is feeding appropriately for growth of and understands stimulating to eat if needed. Infant has had appropriate feedings in the last 24 hours meets the outcomes for weight, output and jaundice (we discussed that the Primary RN had drawn a serum bilirubin) at this time. Infant was latched to the left breast independently by the mother. Mother states she feels her milk has come in. Infant is swallowing at the breast. Mother states she is confident to continue effectively her at home, when to call for assistance and denies any additional assistance or education at this time. Reinforced understanding of milk production, transition of milk, signs of adequate intake, transition of stool, prevention/relief of engorgement, plugged ducts, mastitis, responsive watching for feeding cues, the different methods of stimulating infant to breastfeed 2-3 hours after the start of the last feeding, community resources, and when to call a provider using the resource of the mom and baby guide. Mother voiced understanding of the education shared.
--- NOTE | 2023-06-02 17:07 | PC.NURSE ---
Patient viewed the discharge video Mother & Baby Care, The First Two Weeks . Patient was given the opportunity and encouraged to ask questions. Patient verbalized understanding of information shared and has been given the mother/baby guide for home reference.
[2023-06-03 09:56] VITALS: BP 114/71; PULSE 87; RESP 20; TEMP 37.2; O2SAT 100
== END 2023-06-02 18:45 | disposition home or self-care (01) | DRG 788 ==
LOC: ANHLDR 05-30 10:45 → ANHOB2 05-30 13:21
PROVIDERS: Advanced Practice Midwife; Admitting Provider Obstetrics & Gynecology Gynecology; Visit Provider Obstetrics & Gynecology Gynecology
PROC: 10D00Z1 Extraction of Products of Conception, Low, Open Approach (ICD-10-PCS; CPT 59514; principal; 2023-05-30 09:40)
DX: O76 Abnormality in fetal heart rate and rhythm complicating labor and delivery (principal); O99.214 Obesity complicating childbirth; E66.01 Morbid (severe) obesity due to excess calories; O99.02 Anemia complicating childbirth; O99.824 Streptococcus B carrier state complicating childbirth; Z3A.39 39 weeks gestation of pregnancy; Z37.0 Single live birth
CPT/HCPCS: 36415; 85025; 85461; 86592; 86850; 86900; 86901; 90384; A9270; J0290; J2274; J2371; J2405; J2590; J2790; J2795; J3010; J3105; J7030; J7120

== ENCOUNTER 2023-06-25 | Emergency (ER) | payer BC, SELFPAY ==
[2023-06-25 00:07] VITALS: BP 129/61; PULSE 107; RESP 18; TEMP 36.8; O2SAT 97
--- NOTE | 2023-06-25 05:14 | ED.WOUNDLAC ---
HPI - Wound/Laceration General Chief Complaint: Wound/Laceration Stated Complaint: wound Time Seen by Provider: 06/25/23 04:21 Source: patient Limitations: no limitations History of Present Illness HPI narrative: Patient is a 32-year-old female presented to the emergency department for evaluation of her postoperative incision site. Patient states that she had a on May [address] thayer and has an upcoming appointment scheduled on the 11 of July for follow-up. Patient denies any complications with the . Patient states yesterday she noticed a scant amount clear to yellow drainage coming from the left side of her incision with a slight malodorous stench. Patient denies any pain, recent injuries, fever, vomiting, diarrhea, abdominal pain, rash. Patient also she is . Patient sent the drainage has mostly resolved but wanted it checked out. Patient notes that overall she feels well and has no other concerns. Patient denies any antibiotic use recently. Related Data Home Medications Medication Instructions Recorded Confirmed docusate sodium 100 mg capsule 100 mg PO DAILY 04/25/23 05/29/23 (Colace) vits no.126-ferrous fum 1 tablet PO DAILY 04/25/23 05/29/23 28 mg iron-folic acid 800 mcg tablet (Classic ) Allergies Allergy/AdvReac Type Severity Reaction Status Date / Time No Known Allergies Allergy Verified 04/25/23 13:43 Review of Systems Review of Systems: A 10 system review of systems was completed on the patient and is negative except for what is stated in the HPI. Nursing and ancillary documentation was reviewed. [facility] Past Medical History Medical History (Updated 06/26/23 @ 00:01 by Mani Juan) Anemia affecting Asthma Morbid obesity Family History Family History Grandparent Thyroid disorder Hypertension Father Thyroid disorder Mother Anemia Social History Social History Smoking status: Never smoker Substance use: never Lack of Transportation: No Lack of Food: Never True Current Housing: I Have Housing Concerned About Future Housing: No Difficulty Paying Gas/Electric Bills: No Difficulty Paying for Meds: No Currently Unemployed: No Education: Bachelor's Degree Difficulty w/ Childcare or Family Care: No Spiritual care concerns: No Comments At time of signature, I have reviewed and agree with nursing past medical, surgical, social and family history unless otherwise noted. Please see the nursing chart for further information. There is no relevant family history pertinent to the presenting complaint. Exam Narrative: CONST: No acute distress. Well nourished. HENMT: Head is normocephalic and atraumatic. Moist mucous membranes. EYES: No conjunctival icterus, injection, or pallor. PERRL. NECK: No meningeal signs. RESP: Able to speak in full sentences. Normal respiratory effort. CTAB. CARDIO: Regular rate. Regular rhythm. 2+ DP and radial pulses bilaterally. GI: Nondistended. No tenderness to palpation. Soft. SKIN: No rashes or lesions noted on exposed skin. Lower transverse abdominal surgical incision site is healing appropriately, no dehiscence, absorbable sutures present, no fluctuance, no significant warmth, scant serous appearing fluid present along the surgical incision site on the left side with no obvious tract, no tenderness to palpation, scant warmth, no surrounding erythema, slight malodorous stench. NEURO: Oriented x3. Moves all extremities. stable gait. EXTREM: No pedal edema. PSYCH: Normal affect. Course Vital Signs Vital signs: Vital Signs Temperature 98.2 F 06/25/23 00:07 Pulse Rate 107 H 06/25/23 00:07 Respiratory Rate 18 06/25/23 00:07 Blood Pressure 129/61 06/25/23 00:07 Pulse Oximetry 97 06/25/23 00:07 Oxygen Delivery Crystal
[2023-06-25] MEDS: CEPHALEXIN 500 MG CAPSULE PO (05:35)
== END 2023-06-25 05:38 | disposition home or self-care (01) ==
PROVIDERS: Emergency Provider Student in an Organized Health Care Education/Training Program
DX: O86.01 Infection of obstetric surgical wound, superficial incisional site (principal); L03.311 Cellulitis of abdominal wall; O90.81 Anemia of the puerperium; D64.9 Anemia, unspecified; O99.53 Diseases of the respiratory system complicating the puerperium; J45.909 Unspecified asthma, uncomplicated; O99.215 Obesity complicating the puerperium; E66.01 Morbid (severe) obesity due to excess calories
CPT/HCPCS: 99283; A9270